=== PATIENT | male | born 1960 | race Caucasian/White ===

== ENCOUNTER 2017-03-24 08:50 | Day surgery (SDC) | payer MEDICARE ==
[2017-03-22 17:38] VITALS: BMI 31.6
--- NOTE | 2017-03-23 14:59 | P.GSHP ---
History of Present Illness H&P Date: 03/24/17 Chief Complaint: Colon cancer screening Patient presented to the hospital for a colonoscopy. Diagnosis of colon cancer screening. Does not appear that the patient has had a prior colonoscopy. No family history of colon cancer. Past Medical History Past Medical History: Diabetes Mellitus, GERD/Reflux Additional Past Medical History / Comment(s): peripheral neuropathy nicholas thighs History of Any Multi-Drug Resistant Organisms: None Reported Past Surgical History: Appendectomy, Back Surgery, Orthopedic Surgery Additional Past Surgical History / Comment(s): back surgery with titanium cage, neck surgery with titainum,screw cadavare L4-5 Past Anesthesia/Blood Transfusion Reactions: No Reported Reaction Additional Past Anesthesia/Blood Transfusion Reaction / Comment(s): limited movement when turning head to the right Smoking Status: Current every day smoker - Past Family History Mother Family Medical History: No Reported History Medications and Allergies Home Medications Medication Instructions Recorded Confirmed Type metFORMIN HCL 1,000 mg PO BID 03/21/17 03/22/17 History HYDROcodone/APAP 10-325MG [[place] 1 tab PO Q6H PRN 03/22/17 03/22/17 History 10-325] Insulin Aspart [NovoLOG] See Protocol SQ AC-TID 03/22/17 03/22/17 History Insulin Glargine [Lantus] 64 unit SQ HS 03/22/17 03/22/17 History Motrin Unknown Dose 1 tab PO DAILY PRN 03/22/17 03/22/17 History Pravastatin Sodium [Pravachol] 10 mg PO DAILY 03/22/17 03/22/17 History QUEtiapine FUMARATE [SEROquel] 400 mg PO HS 03/22/17 03/22/17 History clonazePAM [KlonoPIN] 1 mg PO TID 03/22/17 03/22/17 History Allergies Allergy/AdvReac Type Severity Reaction Status Date / Time pregabalin [From Lyrica] Allergy tongue Verified 03/22/17 17:09 turned white trazodone Allergy Vomiting Verified 03/22/17 17:09 Assessment and Plan (1) Colon cancer screening Narrative/Plan: Will proceed with colonoscopy on 03/24. Status: Acute Code(s): Z12.11 - ENCOUNTER FOR SCREENING FOR MALIGNANT NEOPLASM OF COLON SNOMED Code(s): 330468078
[~2017-03-24 08:50] MED LIST: LACTATED RINGERS 1,000 ML IV SCH
[2017-03-24 09:10] VITALS: RESP 16; TEMP 97.9
[2017-03-24] MEDS ORDERED: LIDOCAINE 1% 20 ML VIAL (10MG/ML) FOR IV START INTRADERMA ONE (09:12)
[2017-03-24 09:25] LABS: Glucose,Whole Blood 224 mg/dL (75-99)
[2017-03-24] MEDS ORDERED: LIDOCAINE 1% INJ 10MG/ML (20 ML MDV) ONE (09:36)
[2017-03-24] MEDS ORDERED: PROPOFOL 10 MG/ML 20 ML VIAL IV ONE (09:36)
--- NOTE | 2017-03-24 09:39 | P.HPADDEND ---
H&P Addendum H&P Addendum Date: 03/24/17 Patient has never had a colonoscopy. No bowel related complaints. Physical exam: General: Well-developed, well-nourished HEENT: Normocephalic, sclerae nonicteric Abdomen: Nontender, nondistended Extremities: No edema Neuro: Alert and oriented
--- NOTE | 2017-03-24 10:21 | P.PCN ---
Date of Procedure: 03/24/17 Procedure(s) Performed: PREOPERATIVE DIAGNOSIS: Colon cancer screening POSTOPERATIVE DIAGNOSIS: Multiple colon polyps with diverticulosis PROCEDURE: Colonoscopy snare polypectomy ANESTHESIA: MAC SURGEON: Papo Gonzalez M.D. SPECIMENS: polyps ENDOSCOPIC PROCEDURE: The patient was placed on the endoscopy table in the left decubitus position. The Olympus colonoscope was inserted into the anus and passed under direct visualization to the base of the cecum. The appendiceal orifice was visualized. From that point the scope was slowly withdrawn inspecting all surfaces carefully. Numerous polyps were identified throughout the colon. 2 in the cecum one in the ascending colon to in the transverse colon one in the descending colon and 2 in the sigmoid colon. These ranged in size from 5 mm to 1.5 cm. The largest polyp was identified in the proximal to mid transverse colon. These were all sent to pathology for close examination. The rectum appeared normal. There was mild diverticulosis seen in the left colon. Digital rectal examination was normal. The patient was taken to the recovery room in stable condition per anesthesia guidelines. RECOMMENDATIONS: Await Biopsy results. Increase fiber. Follow-up colonoscopy in 2 years.
[2017-03-24 10:28] LABS: Glucose,Whole Blood 219 mg/dL (75-99)
[2017-03-24 10:56] VITALS: BP 137/74; PULSE 86
--- NOTE | 2017-03-26 12:09 | P.PN ---
Progress Note - Text 03/25 2114 56 year old male s/p fem tib bypass. vas1.no c/o pruritis or nausea/vomitting
== END 2017-03-24 11:21 | disposition home or self-care (01) ==
LOC: ORWHC2ENDO 08:50
PROVIDERS: ATTEND Surgery
DX: Z12.11 Encounter for screening for malignant neoplasm of colon (principal); D12.2 Benign neoplasm of ascending colon; D12.0 Benign neoplasm of cecum; D12.4 Benign neoplasm of descending colon; D12.3 Benign neoplasm of transverse colon; D12.5 Benign neoplasm of sigmoid colon; K57.30 Diverticulosis of large intestine without perforation or abscess without bleeding; K21.9 Gastro-esophageal reflux disease without esophagitis; E11.42 Type 2 diabetes mellitus with diabetic polyneuropathy; E78.5 Hyperlipidemia, unspecified; F41.9 Anxiety disorder, unspecified; Z79.84 Long term (current) use of oral hypoglycemic drugs; Z79.4 Long term (current) use of insulin; Z79.899 Other long term (current) drug therapy; Z88.8 Allergy status to other drugs, medicaments and biological substances; F17.210 Nicotine dependence, cigarettes, uncomplicated
CPT/HCPCS: 88305; 45385; J2001; J2704

== ENCOUNTER 2017-09-14 19:58 | Emergency (ER) | payer MEDICARE ==
[2017-09-14] MEDS ORDERED: SODIUM CHLORIDE 0.9% 1,000 ML IV STA ×2 (20:40)
[2017-09-14] MEDS ORDERED: KETOROLAC 30 MG/ML 1 ML VIAL IVP STA (20:40)
[2017-09-14] MEDS ORDERED: MORPHINE SULFATE 2 MG/ML SYRINGE IV STA (20:40)
[2017-09-14] MEDS ORDERED: ONDANSETRON 4 MG/2 ML VIAL IVP STA (20:40)
--- NOTE | 2017-09-14 20:42 | ED ---
Abdominal Pain HPI - General Chief Complaint: Abdominal Pain Stated Complaint: abdominal & back pain Time Seen by Provider: 09/14/17 20:32 Source: patient, RN notes reviewed, old records reviewed Mode of arrival: ambulatory Limitations: no limitations - History of Present Illness Initial Comments: Physician 56-year-old male with chief complaint of 2 days of right and left upper quadrant abdominal pain. He reports he feels nausea. Worse after eating. He reports he's had no fevers or chills. He states that he just is having severe pain occasionally radiates towards his back. Patient states that he has had history of pancreatitis before. He states it is similar to his past pancreatitis. He is diabetic. - Related Data Home Medications Medication Instructions Recorded Confirmed metFORMIN HCL 2,000 mg PO HS 03/21/17 09/14/17 HYDROcodone/APAP 10-325MG [[place] 1 tab PO Q6H PRN 03/22/17 09/14/17 10-325] Insulin Aspart [NovoLOG] See Protocol SQ AC-SUPPER 03/22/17 09/14/17 Insulin Glargine [Lantus] 60 unit SQ HS 03/22/17 09/14/17 Pravastatin Sodium [Pravachol] 10 mg PO HS 03/22/17 09/14/17 QUEtiapine FUMARATE [SEROquel] 400 mg PO HS 03/22/17 09/14/17 clonazePAM [KlonoPIN] 1 mg PO QAM 03/22/17 09/14/17 Ibuprofen [Motrin] 800 mg PO DAILY PRN 09/14/17 09/14/17 clonazePAM [Clonazepam] 2 mg PO HS 09/14/17 09/14/17 Previous Rx's Medication Instructions Recorded Ibuprofen [Motrin] 600 mg PO Q8HR PRN #25 tab 09/15/17 Allergies Allergy/AdvReac Type Severity Reaction Status Date / Time pregabalin [From Lyrica] Allergy tongue Verified 09/14/17 22:34 turned white trazodone Allergy Vomiting Verified 09/14/17 22:34 Review of Systems ROS Statement: Those systems with pertinent positive or pertinent negative responses have been documented in the HPI. ROS Other: All systems not noted in ROS Statement are negative. Past Medical History Past Medical History: Diabetes Mellitus, GERD/Reflux Additional Past Medical History / Comment(s): pancreatitis History of Any Multi-Drug Resistant Organisms: None Reported Past Surgical History: Appendectomy, Back Surgery, Orthopedic Surgery Additional Past Surgical History / Comment(s): back surgery with titanium cage, neck surgery with titainum,screw cadavare L4-5 Past Anesthesia/Blood Transfusion Reactions: No Reported Reaction Additional Past Anesthesia/Blood Transfusion Reaction / Comment(s): limited movement when turning head to the right Past Psychological History: Anxiety Smoking Status: Current every day smoker Past Alcohol Use History: None Reported Past Drug Use History: None Reported - Past Family History Mother Family Medical History: No Reported History General Exam - General Exam Comments Initial Comments: 56-year-old male. Limitations: no limitations General appearance: alert, in no apparent distress Head exam: Present: atraumatic, normocephalic, normal inspection Eye exam: Present: normal appearance, PERRL, EOMI. Absent: scleral icterus, conjunctival injection, periorbital swelling ENT exam: Present: normal exam, mucous membranes moist Neck exam: Present: normal inspection. Absent: tenderness, meningismus, lymphadenopathy Respiratory exam: Present: normal lung sounds bilaterally. Absent: respiratory distress, wheezes, rales, rhonchi, stridor Cardiovascular Exam: Present: regular rate, normal rhythm, normal heart sounds. Absent: systolic murmur, diastolic murmur, rubs, gallop, clicks GI/Abdominal exam: Present: soft, normal bowel sounds. Absent: distended, tenderness, guarding, rebound, rigid Extremities exam: Present: normal inspection, full ROM, normal capillary refill. Absent: tenderness, pedal edema, joint swelling, calf tenderness Back exam: Present: normal inspection Neurological exam: Present: alert, oriented X3, CN II-XII intact Psychiatric exam: Present: normal affect, normal mood Skin exam: Present: warm, dry, intact, normal color. Absent: rash Course Vital Signs 09/14/17 09/14/17 09/15/17 20:27 22:03 00:26 Temperature 97.8 F 97.9 F Pulse Rate 112 H 86 79 Respiratory 18 17 17 Rate Blood Pressure 136/85 127/71 120/71 O2 Sat by Pulse 97 96 97 Oximetry Medical Decision Making - Medical Decision Making 36-year-old history of pancreatitis presents today with left sided abdominal pain. Patient reports the pain seems to be feeling better after he sits forward. He states it is very towards his back. Patient's labwork was reviewed. His mild elevated pancreatic enzymes lipase of 319. Patient's Coumadin NEGATIVE for any acute process. Discussed he may have biliary colic symptoms are related to eating. Over was concerned with his initial rapid heart rate any pain radiate towards his back between shoulder blades to check the aorta. CT was completed and shows no evidence of dissection. No evidence of intra-abdominal abnormalities as well. Patient informed of these results will follow-up with primary care physician. Discussed clear liquid diet for pancreatitis treatment. - Lab Data Result diagrams: 09/14/17 20:49 09/14/17 20:49 Lab Results 09/14/17 09/14/17 09/14/17 Range/Units 20:49 20:49 20:49 WBC 10.5 (3.8-10.6) k/uL RBC 5.38 (4.30-5.90) m/uL Hgb 15.3 (13.0-17.5) gm/dL Hct 47.3 (39.0-53.0) % MCV 87.8 (80.0-100.0) fL MCH 28.4 (25.0-35.0) pg MCHC 32.4 (31.0-37.0) g/dL RDW 13.8 (11.5-15.5) % Plt Count 296 (150-450) k/uL Neutrophils % 47 % Lymphocytes % 41 % Monocytes % 6 % Eosinophils % 4 % Basophils % 1 % Neutrophils # 4.9 (1.3-7.7) k/uL Lymphocytes # 4.3 (1.0-4.8) k/uL Monocytes # 0.6 (0-1.0) k/uL Eosinophils # 0.4 (0-0.7) k/uL Basophils # 0.1 (0-0.2) k/uL Sodium 139 (137-145) mmol/L Potassium 4.5 (3.5-5.1) mmol/L Chloride 100 (98-107) mmol/L Carbon Dioxide 27 (22-30) mmol/L Anion Gap 12 mmol/L BUN 17 (9-20) mg/dL Creatinine 0.90 (0.66-1.25) mg/dL Est GFR (CKD-EPI)AfAm >90 (>60 ml/min/1.73 sqM) Est GFR (CKD-EPI)NonAf >90 (>60 ml/min/1.73 sqM) Glucose 274 H (74-99) mg/dL Lactic Ac Sepsis Rflx Plasma Lactic Acid [place] 2.3 H* (0.7-2.0) mmol/L Calcium 9.6 (8.4-10.2) mg/dL Total Bilirubin 0.3 (0.2-1.3) mg/dL AST 35 (17-59) U/L ALT 49 (21-72) U/L Alkaline Phosphatase 84 (38-126) U/L Troponin I (0.000-0.034) ng/mL Total Protein 7.5 (6.3-8.2) g/dL Albumin 4.5 (3.5-5.0) g/dL Amylase 46 (30-110) U/L Lipase 316 H (23-300) U/L Urine Color Urine Appearance (Clear) Urine pH (5.0-8.0) Ur Specific [place] (1.001-1.035) Urine Protein (Negative) Urine Glucose (UA) (Negative) Urine Ketones (Negative) Urine Blood (Negative) Urine Nitrite (Negative) Urine Bilirubin (Negative) Urine Urobilinogen (<2.0) mg/dL Ur Leukocyte Esterase (Negative) 09/14/17 09/14/17 09/14/17 Range/Units 20:49 20:54 21:12 WBC (3.8-10.6) k/uL RBC (4.30-5.90) m/uL Hgb (13.0-17.5) gm/dL Hct (39.0-53.0) % MCV (80.0-100.0) fL MCH (25.0-35.0) pg MCHC (31.0-37.0) g/dL RDW (11.5-15.5) % Plt Count (150-450) k/uL Neutrophils % % Lymphocytes % % Monocytes % % Eosinophils % % Basophils % % Neutrophils # (1.3-7.7) k/uL Lymphocytes # (1.0-4.8) k/uL Monocytes # (0-1.0) k/uL Eosinophils # (0-0.7) k/uL Basophils # (0-0.2) k/uL Sodium (137-145) mmol/L Potassium (3.5-5.1) mmol/L Chloride (98-107) mmol/L Carbon Dioxide (22-30) mmol/L Anion Gap mmol/L BUN (9-20) mg/dL Creatinine (0.66-1.25) mg/dL Est GFR (CKD-EPI)AfAm (>60 ml/min/1.73 sqM) Est GFR (CKD-EPI)NonAf (>60 ml/min/1.73 sqM) Glucose (74-99) mg/dL Lactic Ac Sepsis Rflx Y Plasma Lactic Acid Silver[place] (0.7-2.0) mmol/L Calcium (8.4-10.2) mg/dL Total Bilirubin (0.2-1.3) mg/dL AST (17-59) U/L ALT (21-72) U/L Alkaline Phosphatase (38-126) U/L Troponin I <0.012 (0.000-0.034) ng/mL Total Protein (6.3-8.2) g/dL Albumin (3.5-5.0) g/dL Amylase (30-110) U/L Lipase (23-300) U/L Urine Color Yellow Urine Appearance Clear (Clear) Urine pH 6.0 (5.0-8.0) Ur Specific [place] 1.032 (1.001-1.035) Urine Protein Negative (Negative) Urine Glucose (UA) 4+ H (Negative) Urine Ketones 1+ H (Negative) Urine Blood Negative (Negative) Urine Nitrite Negative (Negative) Urine Bilirubin Negative (Negative) Urine Urobilinogen 2.0 (<2.0) mg/dL Ur Leukocyte Esterase Negative (Negative) 09/15/17 00:13 EKG shows normal sinus rhythm with axis deviation. Possible lateral infarct. Inferior infarct. Abnormal EKG. Ventricularly of 81 bpm. SC was 194. Care is duration 90. QTQTC 3-4/446 ms. - Radiology Data Radiology results: report reviewed Ultrasound gallbladder or liver or negative for any acute process. CT aorta shows no siginficant cardiovascular disease. No evidence of aortic dissection. No evidence of aortic stenosis. Disposition Clinical Impression: Pancreatitis Disposition: HOME SELF-CARE Condition: Good Instructions: Pancreatitis (ED), Biliary Colic (ED) Additional Instructions: Patient advised to follow-up with primary care physician within the next 1-2 days. Clear liquid diet. Continue to monitor blood sugars and adjust accordingly.. Return to the emergency department if any alarming signs or symptoms occur. Prescriptions: Ibuprofen [Motrin] 600 mg PO Q8HR PRN #25 tab PRN Reason: Pain Is patient prescribed a controlled substance at d/c from ED?: No When asked, does pt state using other controlled substances?: No If prescribed controlled substance>3 days was MAPS reviewed?: No If opioid is for acute pain is fill amount 7 days or less?: No If Rx opioid, was Start Talking consent form obtained?: No Referrals: Tao Beltran Jr, DO [Primary Care Provider] - 1-2 days Time of Disposition: 00:11
[2017-09-14 21:10] LABS: ALT 49 U/L (21-72); AST 35 U/L (17-59); Albumin 4.5 g/dL (3.5-5.0); Alkaline Phosphatase 84 U/L (38-126); Amylase 46 U/L (30-110); Anion Gap 12 mmol/L; Blood Urea Nitrogen 17 mg/dL (9-20); Calcium 9.6 mg/dL (8.4-10.2); Carbon Dioxide 27 mmol/L (22-30); Chloride 100 mmol/L (98-107); Glucose 274 mg/dL (74-99); Lipase 316 U/L (23-300); Potassium 4.5 mmol/L (3.5-5.1); Sodium 139 mmol/L (137-145); Total Bilirubin 0.3 mg/dL (0.2-1.3); Total Protein 7.5 g/dL (6.3-8.2)
[2017-09-14 21:13] LABS: Basophils # (A) 0.1 k/uL (0-0.2); Basophils % (A) 1 %; Eosinophils # (A) 0.4 k/uL (0-0.7); Eosinophils % (A) 4 %; HCT 47.3 % (39.0-53.0); HGB 15.3 gm/dL (13.0-17.5); Lymphocytes # (A) 4.3 k/uL (1.0-4.8); Lymphocytes % (A) 41 %; MCH 28.4 pg (25.0-35.0); MCHC 32.4 g/dL (31.0-37.0); MCV 87.8 fL (80.0-100.0); Mean Platelet Volume 8.2; Monocytes # (A) 0.6 k/uL (0-1.0); Monocytes % (A) 6 %; Neutrophils # (A) 4.9 k/uL (1.3-7.7); Neutrophils % (A) 47 %; Platelet Count 296 k/uL (150-450); RBC 5.38 m/uL (4.30-5.90); RDW 13.8 % (11.5-15.5); WBC 10.5 k/uL (3.8-10.6)
[2017-09-14 21:15] LABS: Appearance,Urine Clear (Clear); Bilirubin,Urine Negative (Negative); Blood,Urine Negative (Negative); Color,Urine Yellow; Glucose,Urine (UA) 4+ (Negative); Ketones,Urine 1+ (Negative); Leukocyte Esterase,Urine Negative (Negative); Nitrite,Urine Negative (Negative); Protein,Urine Negative (Negative); Specific Gravity,Urine 1.032 (1.001-1.035)
--- NOTE | 2017-09-14 21:59 | US ---
EXAMINATION TYPE: US gallbladder DATE OF EXAM: 09/14/2017 COMPARISON: NONE CLINICAL HISTORY: Pain. Vomiting. Exam limitations due to bowel gas and body habitus. EXAM MEASUREMENTS: Liver Length: 17.7 cm Gallbladder Wall: 0.3 cm CBD: 0.54 cm Right Kidney: 12.8 x 5.9 x 5.3 cm Pancreas: Obscured by bowel gas Liver: Increased attenuation Gallbladder: No stones seen Evidence for sonographic Esteves's sign: No CBD: wnl Right Kidney: No hydronephrosis or masses seen IMPRESSION: NO ACUTE PROCESS.
[2017-09-14 22:04] VITALS: RESP 17
--- NOTE | 2017-09-15 00:07 | CT ---
EXAMINATION TYPE: CT angio thor/abd pel aorta DATE OF EXAM: 09/14/2017 COMPARISON: None HISTORY: Upper abd pain CT DLP: 1934.50 mGycm. Automated Exposure Control for Dose Reduction was Utilized. CONTRAST: CT scan of the thorax, abdomen and pelvis is performed with IV Contrast, patient injected with 100 mL of Isovue 370. FINDINGS: Images are obtained without and with IV contrast. The thoracic aorta is intact but there is no evidence of thoracic aortic aneurysm or dissection. I se e no filling defects in the pulmonary arteries. The abdominal aorta has normal size. There is mild at herosclerotic calcification in the distal abdominal aorta. There is no evidence of abdominal aortic a neurysm or dissection. There is patency of the celiac artery and the superior mesenteric artery. Ther e is bilateral patency of the renal arteries. I see no evidence of renal ischemia. There is bilateral patency of the iliac arteries. There is atherosclerotic plaque and narrowing of the internal iliac a rteries. The lungs are clear of consolidation. There is no pleural effusion. Liver spleen pancreas gallbladder kidneys adrenal glands appear intact. I see no intestinal wall thickening. There are no dilated loop s. IMPRESSION: Mild atherosclerotic vascular disease. No evidence of aortic aneurysm or dissection. No evidence of a ortic stenosis.
[2017-09-15 00:27] VITALS: BP 120/71; PULSE 79; TEMP 97.9
== END 2017-09-15 00:27 | disposition home or self-care (01) ==
LOC: EC 19:58
DX: K85.90 Acute pancreatitis without necrosis or infection, unspecified (principal); R94.31 Abnormal electrocardiogram [ECG] [EKG]; E11.9 Type 2 diabetes mellitus without complications; F41.9 Anxiety disorder, unspecified; F17.200 Nicotine dependence, unspecified, uncomplicated; Z79.4 Long term (current) use of insulin; Z79.899 Other long term (current) drug therapy; Z88.8 Allergy status to other drugs, medicaments and biological substances; Z90.49 Acquired absence of other specified parts of digestive tract; Z98.890 Other specified postprocedural states
CPT/HCPCS: 36415; 93005; 80053; 82150; 83605; 83690; 84484; 85025; 81003; 87040; 76705; 71275; 74174; 99285; 96374; 96375 ×2; 96361 ×3; J2405; J1885; J2270; Q9967

== ENCOUNTER 2022-08-13 09:10 | Emergency (ER) | payer MEDICARE ==
[2022-08-13 09:40] VITALS: TEMP 97.6
--- NOTE | 2022-08-13 09:57 | ED ---
General Adult HPI - General Chief complaint: Abdominal Pain Stated complaint: Pancreatitis Time Seen by Provider: 08/13/22 09:40 Source: patient, RN notes reviewed, old records reviewed Mode of arrival: wheelchair Limitations: no limitations - History of Present Illness Initial comments: This is a 61-year-old male presents emergency Department stating that he thinks his pancreatitis again. Patient states the pain began about one week ago. Patient states he has pain across the upper abdomen and radiates into his back per patient states the back pain is worse than the abdominal pain. Patient denies any nausea vomiting or diarrhea. Patient denies any chest pain. Patient denies any difficulty breathing shortness of breath. Patient states he is a diabetic does smoke. Patient denies any lightheadedness dizziness. Patient denies any recent injury or trauma. Patient denies any fever or chills. - Related Data Home Medications Medication Instructions Recorded Confirmed metFORMIN HCL [Glucophage] 2,000 mg PO HS 03/21/17 09/14/17 HYDROcodone/APAP 10-325MG [[place] 1 tab PO Q6H PRN 03/22/17 09/14/17 10-325] Insulin Aspart [NovoLOG] See Protocol SQ AC-SUPPER 03/22/17 09/14/17 Insulin Glargine [Lantus] 60 unit SQ HS 03/22/17 09/14/17 Pravastatin Sodium [Pravachol] 10 mg PO HS 03/22/17 09/14/17 QUEtiapine FUMARATE [SEROquel] 400 mg PO HS 03/22/17 09/14/17 clonazePAM [KlonoPIN] 1 mg PO QAM 03/22/17 09/14/17 Ibuprofen [Motrin] 800 mg PO DAILY PRN 09/14/17 09/14/17 clonazePAM [Clonazepam] 2 mg PO HS 09/14/17 09/14/17 Previous Rx's Medication Instructions Recorded Ibuprofen [Motrin] 600 mg PO Q8HR PRN #25 tab 09/15/17 Allergies Allergy/AdvReac Type Severity Reaction Status Date / Time pregabalin [From Lyrica] Allergy tongue Verified 08/13/22 09:40 turned white trazodone Allergy Vomiting Verified 08/13/22 09:40 Review of Systems ROS Statement: Those systems with pertinent positive or pertinent negative responses have been documented in the HPI. ROS Other: All systems not noted in ROS Statement are negative. Past Medical History Past Medical History: Diabetes Mellitus, GERD/Reflux Additional Past Medical History / Comment(s): pancreatitis History of Any Multi-Drug Resistant Organisms: None Reported Past Surgical History: Appendectomy, Back Surgery, Orthopedic Surgery Additional Past Surgical History / Comment(s): back surgery with titanium cage, neck surgery with titainum,screw cadavare L4-5 Past Anesthesia/Blood Transfusion Reactions: No Reported Reaction Additional Past Anesthesia/Blood Transfusion Reaction / Comment(s): limited movement when turning head to the right Past Psychological History: Anxiety Smoking Status: Current every day smoker Past Alcohol Use History: None Reported Past Drug Use History: None Reported - Past Family History Mother Family Medical History: No Reported History General Exam - General Exam Comments Initial Comments: GENERAL: Patient is well-developed and well-nourished. Patient is nontoxic and well- hydrated and is in mild distress. ENT: Neck is soft and supple. No significant lymphadenopathy is noted. Oropharynx is clear. Moist mucous membranes. Neck has full range of motion without eliciting any pain. EYES: The sclera were anicteric and conjunctiva were pink and moist. Extraocular movements were intact and pupils were equal round and reactive to light. Eyelids were unremarkable. PULMONARY: Unlabored respirations. Good breath sounds bilaterally. No audible rales rhonchi or wheezing was noted. CARDIOVASCULAR: There is a regular rate and rhythm without any murmurs gallops or rubs. ABDOMEN: Very minimal abdominal tenderness SKIN: Skin is clear with no lesions or rashes and otherwise unremarkable. NEUROLOGIC: Patient is alert and oriented x3. Cranial nerves II through XII are grossly intact. Motor and sensory are also intact. Normal speech, volume and content. Symmetrical smile. MUSCULOSKELETAL: Normal extremities with adequate strength and full range of motion. LYMPHATICS: No significant lymphadenopathy is noted PSYCHIATRIC: Normal psychiatric evaluation. Limitations: no limitations Course Vital Signs 08/13/22 08/13/22 08/13/22 09:36 10:28 11:19 Temperature 97.6 F Pulse Rate 107 H 96 94 Respiratory 20 20 18 Rate Blood Pressure 136/80 135/77 131/84 O2 Sat by Pulse 97 98 98 Oximetry 08/13/22 12:13 Temperature Pulse Rate 90 Respiratory 18 Rate Blood Pressure 121/98 O2 Sat by Pulse 98 Oximetry Medical Decision Making - Medical Decision Making EKG was interpreted by myself shows a sinus rhythm at 96 bpm TX interval is 164 QRS is under 12 QT interval 354 QTC is 408. Patient's EKG shows no ST segment elevation or depression. Was pt. sent in by a medical professional or institution ([facility], [facility], urgent care, hospital, or alf...) When possible be specific @ -[No] Did you speak to anyone other than the patient for history (EMS, parent, family, police, friend...)? What history was obtained from this source @ -[No] Did you review nursing and triage notes (agree or disagree)? Why? @ -[I reviewed and agree with nursing and triage notes] Were old charts reviewed (outside hosp., previous admission, EMS record, old EKG, old radiological studies, urgent care reports/EKG's, alf records)? Report findings @ -Reviewed prior lab work from prior charts and the patient Differential Diagnosis (chest pain, altered mental status, abdominal pain women, abdominal pain men, vaginal bleeding, weakness, fever, dyspnea, syncope, headache, dizziness, GI bleed, back pain, seizure, CVA, palpatations, mental health, musculoskeletal)? @ -Abdominal pain men EKG interpreted by me (3pts min.). @ -[As above] X-rays interpreted by me (1pt min.). @ -[None done] CT interpreted by me (1pt min.). @ -Computed tomography scan shows no facial head of the pancreas U/S interpreted by me (1pt. min.). @ -[None done] What testing was considered but not performed or refused? (CT, X-rays, U/S, labs)? Why? @ -[None] What meds were considered but not given or refused? Why? @ -[None] Did you discuss the management of the patient with other professionals (professionals i.e. [facility], [facility], lab, RT, psych nurse, social service worker, patient relations specialist, teacher, corporate security officer, patient case coordinator)? Give summary @ -I spoke with Dr. Rosales he agrees to admit the patient admitted the patient remaining orders Was smoking cessation discussed for >3mins.? @ -[No] Was critical care preformed (if so, how long)? @ -[No] Were there social determinants of health that impacted care today? How? (Homelessness, low income, unemployed, alcoholism, drug addiction, transportation, low edu. Level, literacy, decrease access to med. care, halfway, rehab)? @ -[No] Was there de-escalation of care discussed even if they declined (Discuss DNR or withdrawal of care, Hospice)? DNR status @ -[No] What co-morbidities impacted this encounter? (DM, HTN, Smoking, COPD, CAD, Cancer, CVA, ARF, Chemo, Hep., AIDS, mental health diagnosis, sleep apnea, morbid obesity)? @ -[None] Was patient admitted / discharged? Hospital course, mention meds given and route, prescriptions, significant lab abnormalities, going to OR and other pertinent info. @ -Patient has potential early pancreatitis by the CAT scan. I spoke with Dr. rosales he wants to admit the patient Undiagnosed new problem with uncertain prognosis? @ -[No] Drug Therapy requiring intensive monitoring for toxicity (Heparin, Nitro, Insulin, Cardizem)? @ -[No] Were any procedures done? @ -[No] Diagnosis/symptom? @ -Pancreatitis Acute, or Chronic, or Acute on Chronic? @ -Acute Uncomplicated (without systemic symptoms) or Complicated (systemic symptoms)? @ -Complicated Side effects of treatment? @ -[No] Exacerbation, Progression, or Severe Exacerbation? @ -[No] Poses a threat to life or bodily function? How? (Chest pain, [place], [place], pneumonia, PE, COPD, DKA, ARF, appy, cholecystitis, CVA, Diverticulitis, Homicidal, Suicidal, threat to staff... and all critical care pts) @ -[No] After patient agreed to admission and patient is being admitted patient decided he didn't want to stay and signed out AMA - Lab Data Result diagrams: 08/13/22 10:08 08/13/22 10:08 Lab Results 08/13/22 08/13/22 08/13/22 Range/Units 10:08 10:08 10:08 WBC 9.7 (3.8-10.6) k/uL RBC 5.75 (4.30-5.90) m/uL Hgb 16.9 (13.0-17.5) gm/dL Hct 51.7 (39.0-53.0) % MCV 89.9 (80.0-100.0) fL MCH 29.3 (25.0-35.0) pg MCHC 32.6 (31.0-37.0) g/dL RDW 14.2 (11.5-15.5) % Plt Count 297 (150-450) k/uL MPV 9.3 Neutrophils % 46 % Lymphocytes % 44 % Monocytes % 5 % Eosinophils % 4 % Basophils % 0 % Neutrophils # 4.5 (1.3-7.7) k/uL Lymphocytes # 4.3 (1.0-4.8) k/uL Monocytes # 0.5 (0-1.0) k/uL Eosinophils # 0.4 (0-0.7) k/uL Basophils # 0.0 (0-0.2) k/uL PT 10.6 (9.0-12.0) sec INR 1.0 (<1.2) APTT 28.0 (22.0-30.0) sec D-Dimer 0.37 (<0.60) mg/L FEU Sodium 133 L (137-145) mmol/L Potassium 4.2 (3.5-5.1) mmol/L Chloride 96 L (98-107) mmol/L Carbon Dioxide 23 (22-30) mmol/L Anion Gap 14 mmol/L BUN 7 L (9-20) mg/dL Creatinine 0.67 (0.66-1.25) mg/dL Est GFR (CKD-EPI)AfAm >90 (>60 ml/min/1.73 sqM) Est GFR (CKD-EPI)NonAf >90 (>60 ml/min/1.73 sqM) Glucose 112 H (74-99) mg/dL Calcium 9.1 (8.4-10.2) mg/dL Magnesium 1.8 (1.6-2.3) mg/dL Total Bilirubin 0.7 (0.2-1.3) mg/dL AST 35 (17-59) U/L ALT 36 (4-49) U/L Alkaline Phosphatase 112 (38-126) U/L Troponin I (0.000-0.034) ng/mL NT-Pro-B Natriuret Pep pg/mL Total Protein 9.1 H (6.3-8.2) g/dL Albumin 4.9 (3.5-5.0) g/dL Lipase 179 (23-300) U/L 08/13/22 08/13/22 Range/Units 10:08 10:08 WBC (3.8-10.6) k/uL RBC (4.30-5.90) m/uL Hgb (13.0-17.5) gm/dL Hct (39.0-53.0) % MCV (80.0-100.0) fL MCH (25.0-35.0) pg MCHC (31.0-37.0) g/dL RDW (11.5-15.5) % Plt Count (150-450) k/uL MPV Neutrophils % % Lymphocytes % % Monocytes % % Eosinophils % % Basophils % % Neutrophils # (1.3-7.7) k/uL Lymphocytes # (1.0-4.8) k/uL Monocytes # (0-1.0) k/uL Eosinophils # (0-0.7) k/uL Basophils # (0-0.2) k/uL PT (9.0-12.0) sec INR (<1.2) APTT (22.0-30.0) sec D-Dimer (<0.60) mg/L FEU Sodium (137-145) mmol/L Potassium (3.5-5.1) mmol/L Chloride (98-107) mmol/L Carbon Dioxide (22-30) mmol/L Anion Gap mmol/L BUN (9-20) mg/dL Creatinine (0.66-1.25) mg/dL Est GFR (CKD-EPI)AfAm (>60 ml/min/1.73 sqM) Est GFR (CKD-EPI)NonAf (>60 ml/min/1.73 sqM) Glucose (74-99) mg/dL Calcium (8.4-10.2) mg/dL Magnesium (1.6-2.3) mg/dL Total Bilirubin (0.2-1.3) mg/dL AST (17-59) U/L ALT (4-49) U/L Alkaline Phosphatase (38-126) U/L Troponin I <0.012 (0.000-0.034) ng/mL NT-Pro-B Natriuret Pep <11 pg/mL Total Protein (6.3-8.2) g/dL Albumin (3.5-5.0) g/dL Lipase (23-300) U/L Disposition Clinical Impression: Pancreatitis Disposition: LEFT AGAINST MEDICAL ADVICE Is patient prescribed a controlled substance at d/c from ED?: No Referrals: Tao Beltran Jr, [Primary Care Provider] - 1-2 days Time of Disposition: 14:02
[2022-08-13 10:40] LABS: Basophils % (A) 0 %; Eosinophils # (A) 0.4 k/uL (0-0.7); Eosinophils % (A) 4 %; HCT 51.7 % (39.0-53.0); HGB 16.9 gm/dL (13.0-17.5); Lymphocytes # (A) 4.3 k/uL (1.0-4.8); Lymphocytes % (A) 44 %; MCH 29.3 pg (25.0-35.0); MCHC 32.6 g/dL (31.0-37.0); MCV 89.9 fL (80.0-100.0); Mean Platelet Volume 9.3; Monocytes # (A) 0.5 k/uL (0-1.0); Monocytes % (A) 5 %; Neutrophils # (A) 4.5 k/uL (1.3-7.7); Neutrophils % (A) 46 %; Platelet Count 297 k/uL (150-450); RBC 5.75 m/uL (4.30-5.90); RDW 14.2 % (11.5-15.5); WBC 9.7 k/uL (3.8-10.6)
[2022-08-13 10:55] LABS: ALT 36 U/L (4-49); African American GFR (CKD) >90 (>60 ml/min/1.73 sqM); Albumin 4.9 g/dL (3.5-5.0); Anion Gap 14 mmol/L; Blood Urea Nitrogen 7 mg/dL (9-20); Calcium 9.1 mg/dL (8.4-10.2); Carbon Dioxide 23 mmol/L (22-30); Chloride 96 mmol/L (98-107); Glucose 112 mg/dL (74-99); Lipase 179 U/L (23-300); Non-African American GFR(CKD) >90 (>60 ml/min/1.73 sqM); Sodium 133 mmol/L (137-145); Total Bilirubin 0.7 mg/dL (0.2-1.3); Total Protein 9.1 g/dL (6.3-8.2)
[2022-08-13 11:04] LABS: AST 35 U/L (17-59); Alkaline Phosphatase 112 U/L (38-126); Magnesium 1.8 mg/dL (1.6-2.3); Potassium 4.2 mmol/L (3.5-5.1)
--- NOTE | 2022-08-13 11:05 | XR ---
EXAMINATION TYPE: XR chest 2V DATE OF EXAM: 08/13/2022 COMPARISON: 06/22/2009 HISTORY: 61-year-old male with chest pain TECHNIQUE: PA and lateral views FINDINGS: Mild hyperinflation. Heart is normal size. Aorta and pulmonary vasculature within normal limits. ACDF hardware. IMPRESSION: Mild hyperinflation which may relate to a depth of inspiration or underlying emphysema. Clinically co rrelate. No acute cardiopulmonary process.
[2022-08-13] MEDS ORDERED: HYDROmorphone 0.5 MG/0.5 ML SYRINGE IVP STA (11:10)
[2022-08-13 11:20] VITALS: RESP 18
[2022-08-13 11:30] LABS: Prothrombin Time 10.6 sec (9.0-12.0)
[2022-08-13 12:13] VITALS: BP 121/98; PULSE 90
--- NOTE | 2022-08-13 13:02 | CT ---
EXAMINATION TYPE: CT ChestAbdPelvis w con DATE OF EXAM: 08/13/2022 COMPARISON: 09/14/2017 HISTORY: 61-year-old male Epigastric pain and back pain, Pancreatitis TECHNIQUE: Contiguous axial scanning of the chest, abdomen, and pelvis performed with IV Contrast, pa tient injected with 100 mL of Isovue 300. Delayed images through the kidneys were obtained. Coronal/s agittal reconstructions performed. CT DLP: 2027.8 mGycm Automated exposure control for dose reduction was used. FINDINGS: LUNGS: Mild emphysematous change. The lungs are grossly clear, there is no concerning parenchymal mas s or nodule identified. There is no pleural effusion or pneumothorax seen. The tracheobronchial tr ee is patent. MEDIASTINUM: Heart normal size. No pericardial effusion. LAD coronary artery calcifications. Bovine c onfiguration to the aortic arch. Mild atherosclerotic stenosis left subclavian artery just after its origin. No thoracic lymphadenopathy. OTHER: No additional significant abnormality is seen. LIVER/GB: Attenuation of the liver parenchyma. Portal venous system is patent. No biliary ductal dila tation. Small 1.7 cm diverticulum of the second portion of the duodenum projecting anteriorly towards the pancreatic head. No abnormal gallbladder distention. PANCREAS: There is mild fullness and fat stranding around the head of the pancreas SPLEEN: No significant abnormality is seen. ADRENALS: No significant abnormality is seen. KIDNEYS: No significant abnormality is seen. BOWEL: Mild stool burden. Left-sided colonic diverticulosis. No peritransplant inflammatory change se en. Mildly redundant colon. No dilated small bowel, free fluid, or free air. LYMPH NODES: No greater than 1cm abdominal or pelvic lymph nodes are appreciated. PELVIS: Prostate gland mildly enlarged at 4.1 cm wide. No abnormal fluid collection in the pelvis or pelvic lymphadenopathy seen. OSSEOUS STRUCTURES: Postsurgical change of L5-S1 posterior lumbar interbody fusion. There is some jagruti dging anterior plate spondylosis across L4-L5 as well. Mild degenerative disc disease lower thoracic spine and thoracolumbar junction. Mild degenerative change in both hips. OTHER: Mild to moderate atherosclerotic changes within the common iliac arteries with segmental mild stenoses. IMPRESSION: 1. MILD FULLNESS AND FAT STRANDING AROUND THE HEAD OF THE PANCREAS. CORRELATE FOR MILD ACUTE INTERSTI TIAL PANCREATITIS. NO ABNORMAL FLUID COLLECTION IS SEEN. 2. COPD WITH MILD EMPHYSEMA. LAD CORONARY ARTERY CALCIFICATIONS. LEFT-SIDED COLONIC DIVERTICULOSIS.
[2022-08-13] MEDS ORDERED: NICOTINE 21MG/24HR PATCH TRANSDERM STA (13:47)
== END 2022-08-13 14:15 | disposition left against medical advice (07) ==
LOC: EC 09:10
DX: K85.90 Acute pancreatitis without necrosis or infection, unspecified (principal); E11.9 Type 2 diabetes mellitus without complications; F41.9 Anxiety disorder, unspecified; F17.200 Nicotine dependence, unspecified, uncomplicated; Z88.8 Allergy status to other drugs, medicaments and biological substances; Z79.84 Long term (current) use of oral hypoglycemic drugs; Z79.4 Long term (current) use of insulin; Z79.899 Other long term (current) drug therapy; Z53.29 Procedure and treatment not carried out because of patient's decision for other reasons
CPT/HCPCS: 36415; 93005; 85379; 83880; 80053; 83690; 83735; 84484; 85025; 85610; 85730; 71046; 71260; 74177; 99285; 96374; J1170; Q9967

== ENCOUNTER → 2024-10-01 | Outpatient (CLI) | payer MEDICARE ==
--- NOTE | 2024-10-01 11:57 | CT ---
EXAMINATION TYPE: CT chest wo con DATE OF EXAM: 10/01/2024 COMPARISON: 08/13/2022 CLINICAL INDICATION: Male, 63 years old with history of J18.9 PNEUMONIA, UNSPECIFIED [id number] PN EUMONIA, UNSPEC; PHH, cough, pneumonia TECHNIQUE: CT scan of the thorax is performed without IV contrast. CT DLP: 391.[address] CTDI: mGy Automated exposure control for dose reduction was used. FINDINGS: LUNGS: Patchy right upper lobe infiltrate suspicious for infectious pneumonitis. Underlying COPD. Lef t upper lobe 2 mm pulmonary micronodule has a benign appearance. Subsegmental linear changes at the r ight lung base typical of scarring or atelectasis. Additional 3 mm nodule seen within the right middl e lobe too small to characterize.. MEDIASTINUM: Lack of IV contrast is noted to limit evaluation for mediastinal and especially hilar ad enopathy. There are no definitive greater than 1 cm hilar or mediastinal lymph nodes. Aorta of normal caliber with atherosclerotic changes. Faint calcification near the aortic valve. HEART: Cardiomegaly is demonstrated.Moderate coronary artery calcification. Trace of pericardial fluid. OTHER: Slight curvature of spine with generalized demineralization and multilevel degenerative disc d isease. Karli gynecomastia. IMPRESSION: 1. Patchy groundglass right upper lobe consolidation suspicious for pneumonia. 2. COPD. Follow-up recommendations for incidental pulmonary nodules are per [employer] or [employer]. [facility], , 10/01/2024 11:54 AM
== END | disposition home or self-care (01) ==
LOC: RADCTMAIN 10:49
PROVIDERS: ATTEND Family Medicine
DX: J44.9 Chronic obstructive pulmonary disease, unspecified (principal); J18.9 Pneumonia, unspecified organism
CPT/HCPCS: 71250